=== PATIENT | male | born 1995 ===

== ENCOUNTER 2020-10-27 10:00 | Outpatient (RCR) | payer OTHER, SELFPAY ==
[2020-10-10 13:14] VITALS: BMI 17.4
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
--- NOTE | 2020-10-10 16:06 | PC.NURSE ---
Case opened in treatment team
--- NOTE | 2020-10-16 16:34 | P.PNPSP_ITS ---
Subjective Subjective Date of Service: 10/16/20 Reason For Visit: depression Medical Problems Affecting Mental Status: No Interim History: Sanju reports that he feels the group settings are helping him learn how to manage his depression and anxiety, feels that they are beneficial. Patient continues to state that he is not interested in psychiatric medications at this time. However, he is open to considering holistic / alternative treatments. We discussed the use of Clint's Wort, and other plant preparations, such as Kava to help manage anxiety symptoms. He was encouraged to speak with a reputable store such as [employer] or [employer], or consider a holistic practitioner in the area. He said he would consider this. Review of Systems Review of Systems Yes all other systems are reviewed and are negative Mental Status Exam Mental Status Exam Patient Appearance: Well Grooomed and Appropriate Patient Orientation: Person, Time and Situation Level of Consciousness: Awake and Appropriate Patient Behavior: Appropriate Mood Description: Calm, Depressed and Anxious Affect Description: Depressed and Anxious Patient Cognition Impaired: No Ability to Follow Directions: Excellent Speech Pattern: Clear and Appropriate Memory Description: Intact Hallucinations: None Delusions: Not Present Thought Process: Intact Depressive Symptoms: Increased Anxiety Judgement: Good Diagnostics Vital Signs (24Hr): Body Mass Index 17.4 Assessment & Plan Patient educated on: diagnosis, medication risk/benefits and therapeutic strategies Informed Consent: understands Reason for contiued partial hosp. stay Substantial Risk for: inability to function and med/psych decompensation Certification ASSESSMENT / PLAN: No medications ordered at this time. Will continue to follow-up with patient while he is in program. I certify that partial hospital treatment is medically necessary due to the symptoms and problems resulting from the patient's mental illness and the failure to treat the patient at the partial hospital level of care would likely result in the patient requiring inpatient psychiatric care which could not be prevented at a less intensive level of care. Greater than 50% of the session was spent on counseling and/or coordination of care Discharge Plan Discharge Attending provider: Aravind Holloway Medications: No Action No Known Home Meds RF: 0 Telehealth Telehealth Location of provider rendering services: practice address Location of patient: address on file Patient Identification confirmed using: Name, : Yes Telehealth method: video Patient verbally consented to treatment: Yes Patient verbally consented to billing insurance company: Yes Patient informed of any privacy concerns related to visit: Yes Time spent with patient (mins): 20
--- NOTE | 2020-10-19 11:54 | PC.NURSE ---
Patient stated he is working with [facility] in obtaining Gwen Gonsalves as his PCP. He stated he submitted forms and he is waiting for them to call him back to schedule an appointment.
--- NOTE | 2020-10-19 14:29 | PC.NURSE ---
During the third group in response to the question about safety the client starts that he has chronic suicidal thoughts with some plans although he denies any intent. He lives with his mother and will reach out to her if needed.
--- NOTE | 2020-10-23 11:04 | PC.NURSE ---
Sanju did not show up to the community meeting this morning. Called patient at 0925 and patient stated that he did not sleep well last night and he fell asleep shortly before I called. Patient plans on coming to the program tomorrow. Asked if patient had SI or felt unsafe and he stated no and that he was safe.
--- NOTE | 2020-10-24 13:45 | HO.PHPPROGNO ---
Subjective Subjective Date of Service: 10/24/20 Reason For Visit: depression Subjective Notes: [place] Warning Medical Problems Affecting Mental Status: No Interim History: Sanju reports that the groups have been helping regarding his depression and anxiety. However, he reports that he does continue with some level of SI, and states that he has had this for years, and he believes that it will always be there , in some degree. He says he has had a plan since he was around 10 or 11, but has no intent. We discussed importance of therapy in treating depression. 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 Suggestions were made, including increasing foods containing tryptophan, such as eggs, cheese, tofu, salmon. Increase pineapples. Add exercise, even in 10 minute increments, to build up to 30minutes, 3X/week. Consider a light box. Vitamin supplements such as vitamin D, B6, B12. Sanju was given resources for places in this area, including [facility], for alternative and complementary treatments for depressive symptoms. He was agreeable to considering these, and was also given website info for the [facility] for Complementary and Integr[facility]. He also agreed to notify us or his immediate support network if he ever progresses from no SI intent to actually having intent with plan, and means to carry to completion. He is not agreeable to any prescribed medications at this time. Plan to follow-up in one week, sooner if needed. Medication Compliance: No (not applicable, none prescribed) Side effects from medications: No (N/A) Attending Groups: Yes Review of Systems Review of Systems Yes all other systems are reviewed and are negative Mental Status Exam Mental Status Exam Patient Appearance: Well Grooomed and Appropriate Patient Orientation: Person, Place, Time and Situation Patient Behavior: Appropriate Mood Description: Depressed and Anxious Affect Description: Depressed and Flat Patient Cognition Impaired: No Ability to Follow Directions: Excellent Speech Pattern: Clear, Appropriate and Spontaneous Speech Memory Description: Intact Hallucinations: None Delusions: Not Present Thought Content: positive for Intact and positive for Suicidal Ideation (passive, no intent. Able to contract for safety) Depressive Symptoms: Hopelessness and Thoughts of /Suicide Judgement: Good Diagnostics Vital Signs (24Hr): Body Mass Index 17.4 Assessment & Plan Assessment & Plan (1) Social anxiety disorder: Status: Acute Code(s): F40.10 - Social phobia, unspecified Assessment and Plan: Discussed ways to reduce anxiety, including exercise, meditation, yoga. (2) Major depressive disorder, recurrent episode, severe: Status: Acute Code(s): F33.2 - Major depressive disorder, recurrent severe without psychotic features Assessment and Plan: Patient not willing to try prescribed antidepressants. Discussed ways to increase serotonin, including changes to diet, light therapy, supplementation with herbal remedies and vitamins. Discussed importance of therapy. Passive SI, contracts for safety, no plan. Suggested he research [facility] website. Information on local resources provided. Certification I certify that partial hospital treatment is medically necessary due to the symptoms and problems resulting from the patient's mental illness and the failure to treat the patient at the partial hospital level of care would likely result in the patient requiring inpatient psychiatric care which could not be prevented at a less intensive level of care. Greater than 50% of the session was spent on counseling and/or coordination of care Discharge Plan Discharge Attending provider: Aravind Holloway Medications: No Action No Known Home Meds RF: 0 Telehealth Telehealth Location of provider rendering services: practice address Location of patient: address on file Patient Identification confirmed using: Name, : Yes Telehealth method: video Patient verbally consented to treatment: Yes Patient verbally consented to billing insurance company: Yes Patient informed of any privacy concerns related to visit: Yes Time spent with patient (mins): 15
== END 2020-10-30 09:11 | disposition home or self-care (01) ==
LOC: HO.PHPA 10:00
PROVIDERS: Visit Provider Psychiatry & Neurology Psychiatry
DX: F33.2 Major depressive disorder, recurrent severe without psychotic features (principal); F40.10 Social phobia, unspecified
CPT/HCPCS: 90791; 90792; 90853; 99211